=== PATIENT | female | born 1960 | race Caucasian/White ===

== ENCOUNTER 2019-03-18 07:10 | Emergency (ER) | payer MEDICARE ==
--- NOTE | 2019-03-18 07:19 | ER Report ---
History and Physical Time Seen By MD: 07:15 Hx. of Stated Complaint: BACK PAIN AFTER BENDING OVER IN RECLINER LAST NIGHT. STATES SHE IS NOW UNABLE TO AMBULATE. HX SCIATICA HPI/ROS CHIEF COMPLAINT: Lumbar back pain HISTORY OF PRESENT ILLNESS: Patient is 59-year-old female here with complaints of lower back pain since yesterday when she is bending over a recliner last night. Patient states that she is having increasing difficulty ambulating. She does report having history of sciatica. Patient is neurovascularly intact at time of evaluation with no bony step-offs or abnormalities. Patient is afebrile and denies bowel or bladder incontinence. REVIEW OF SYSTEMS: Constitutional: No fever, no chills. Eyes: No discharge. ENT: No sore throat. Cardiovascular: No chest pain, no palpitations. Respiratory: No cough, no shortness of breath. Gastrointestinal: No abdominal pain, no vomiting. Genitourinary: No hematuria. Musculoskeletal: + Lower lumbar back pain with range of motion and palpation Skin: No rashes. Neurological: Neurovascular exam intact in distal lower extremities Allergies: Coded Allergies: No Known Drug Allergies (Unverified , 03/18/19) Home Meds Active Scripts Prednisone (PREDNISONE) 50 Mg Tablet, 50 MG PO QDAY for 5 Days, #5 TAB Prov:MARIA DEL CARMEN GAONA DO 03/18/19 Tramadol Hcl (TRAMADOL HCL) 50 Mg Tablet, 50 MG PO Q6H PRN for PAIN, #12 TAB 0 Refills Prov:MARIA DEL CARMEN GAONA DO 03/18/19 Cyclobenzaprine Hcl (CYCLOBENZAPRINE HCL) 10 Mg Tablet, 10 MG PO Q8H PRN for MUSCLE SPASMS, #20 TAB 0 Refills Prov:MARIA DEL CARMEN GAONA DO 03/18/19 Reported Medications Diazepam (DIAZEPAM) 5 Mg Tablet, 5 MG PO PRN PRN for PAIN, #15 TAB 03/18/19 Levothyroxine Sodium (LEVOTHYROXINE SODIUM) 50 Mcg Tablet, 50 MCG PO QDAY, TAB 03/18/19 Bupropion Hcl (WELLBUTRIN SR) 100 Mg Tablet.er, 100 MG PO QDAY, TAB 03/18/19 Amitriptyline Hcl (AMITRIPTYLINE HCL) 25 Mg Tablet, 25 MG PO QHS, #5 TAB 03/18/19 Sertraline Hcl (ZOLOFT) 100 Mg Tablet, 1 TAB PO QDAY, TAB 03/18/19 Omeprazole (OMEPRAZOLE) 40 Mg Capsule.dr, 40 MG PO QDAY, CAP 03/18/19 Gabapentin (GABAPENTIN) 300 Mg Capsule, 800 MG PO BID, CAPSULE 03/18/19 Duloxetine HCl (Duloxetine HCl) 60 Mg Capsule.dr, 1 CAP PO DAILY 03/18/19 Constitutional Vital Sign - Last 24 Hours 03/18/19 03/18/19 07:11 11:10 Temp 98.5 Pulse 67 78 Resp 20 18 B/P (MAP) 136/101 133/95 (108) Pulse Ox 91 95 O2 Delivery Nasal Cannula Room Air Physical Exam General Appearance: The patient is alert, has no immediate need for airway protection and no signs of toxicity. Uncomfortable appearing Eyes: Pupils equal and round no pallor or injection. ENT, Mouth: Mucous membranes are moist. Respiratory: There are no retractions, lungs are clear to auscultation. Cardiovascular: Regular rate and rhythm. Gastrointestinal: Abdomen is soft and non tender, no masses, bowel sounds normal. Neurological: No focal neurological deficits on examination, lower extremity strength and sensation intact Skin: Warm and dry, no rashes. Musculoskeletal: Neck is supple non tender. Extremities are nontender, nonswollen and have full range of motion. DIFFERENTIAL DIAGNOSIS: After history and physical exam differential diagnosis was considered for back pain including but not limited to muscular pain, herniated disc, spine fracture, intra-abdominal causes and urinary tract infection. Medical Decision Making EKG/Imaging Imaging PATIENT NAME: Parul Sharma : 1960 MR: [id number] V: [id number] EXAM DATE: ORDERING PHYSICIAN: MARIA DEL CARMEN GAONA TECHNOLOGIST: [place] [facility] [place]ul Sh[place] : 1960 Visit/Account:[id number] Date of Sevice: 03/18/2019 CT VERTEBRA LUMBAR (NON CON) HISTORY: Low back pain COMPARISON STUDIES: None TECHNIQUE: Axial images were obtained from the thoraco-lumbar junction through the upper sacrum without IV contrast administration. Coronal and sagittal reformatted images were obtained from the axial source data. One of the following dose optimization techniques was utilized in the performance of this exam: automated exposure control; adjustment of the mA and/or kv according to patient size; or use of iterative reconstruction technique. Specific details can be referenced in the facility's radiology CT exam operational policy. FINDINGS: Paravertebral soft tissues: Negative Alignment: Negative Vertebral bodies: Negative Posterior elements: Mild facet proliferation from L3-S1. Disc Spaces: Negative Visualized retroperitoneal / abdominal structures: Negative Other findings: None significant IMPRESSION: 1. Negative for acute fracture or spondylolisthesis. 2. Mild facet proliferation from L3-S1. ED Course/Re-evaluation ED Course Patient is a 59-year-old female here with complaints of lower lumbar back pain without bony abnormalities step-offs, saddle anesthesia, bowel or bladder in continence, urinary retention. Patient had intact sensation and motor strength in distal lower extremities. CT imaging of the lumbar spine was completed and showed no acute fractures or malalignment. Patient was given Percocet, Flexeril for symptom management. Patient was given scripts for outpatient analgesia, muscle relaxer, prednisone. Recommended close follow-up with orthopedics. Return precautions provided. Decision to Disposition Date: Mar 18, 2019 Decision to Disposition Time: 10:56 Depart Departure Latest Vital Signs Vital Signs Date Time Temp Pulse Resp B/P (MAP) Pulse Ox O2 Delivery O2 Flow Rate FiO2 03/18/19 11:10 78 18 133/95 (108) 95 Room Air 03/18/19 07:11 98.5 Impression: Primary Impression: Lumbar back pain Condition: Improved Disposition: HOME OR SELF-CARE New Scripts Prednisone (PREDNISONE) 50 Mg Tablet 50 MG PO QDAY for 5 Days, #5 TAB Prov: MARIA DEL CARMEN GAONA DO 03/18/19 Tramadol Hcl (TRAMADOL HCL) 50 Mg Tablet 50 MG PO Q6H PRN for PAIN, #12 TAB 0 Refills Prov: MARIA DEL CARMEN GAONA DO 03/18/19 Cyclobenzaprine Hcl (CYCLOBENZAPRINE HCL) 10 Mg Tablet 10 MG PO Q8H PRN for MUSCLE SPASMS, #20 TAB 0 Refills Prov: MARIA DEL CARMEN GAONA DO 03/18/19 Patient Instructions: Acute Low Back Pain (ED) Additional Instructions: Please take prednisone 50 mg daily for the next 5 days. You may take Flexeril one tablet every 6-8 hours as needed for muscle spasm. You may take tramadol 1 tablet every 6-8 hours as needed for breakthrough pain control. Please follow up closely with [facility] for further evaluation and care. Please return promptly if you develop urinary retention, bowel or bladder incontinence, fevers, muscle weakness. MARIA DEL CARMEN GAONA DO Mar 18, 2019 07:19
[2019-03-18] MEDS ORDERED: oxyCODON/ACET (*)5/325MG (CII) 1 TAB TAB PO ONE (07:30)
[2019-03-18] MEDS ORDERED: CYCLOBENZAPRINE HCL 10 MG TAB PO ONE (07:30)
[2019-03-18] MEDS ORDERED: AMIT-106 PO (07:55)
[2019-03-18] MEDS ORDERED: GABA-549 PO (07:55)
[2019-03-18] MEDS ORDERED: DIAZ-308 PO (07:55)
[2019-03-18] MEDS ORDERED: DULO60CA7 PO (07:55)
[2019-03-18] MEDS ORDERED: SERT-173 PO (07:55)
[2019-03-18] MEDS ORDERED: LEVO50TA86 PO (07:55)
[2019-03-18] MEDS ORDERED: OMEP40CA48 PO (07:55)
[2019-03-18] MEDS ORDERED: BUPR-133 PO (07:55)
--- NOTE | 2019-03-18 08:47 | RADIOLOGY IMAGING REPORT ---
FACILITY: [facility] PATIENT NAME: Parul Sharma : 1960 MR: [id number] V: [id number] EXAM DATE: ORDERING PHYSICIAN: MARIA DEL CARMEN GAONA TECHNOLOGIST: Location: [facility] [place] Patient: Parul Sharma : 1960 Visit/Account:[id number] Date of Sevice: 03/18/2019 CT VERTEBRA LUMBAR (NON CON) HISTORY: Low back pain COMPARISON STUDIES: None TECHNIQUE: Axial images were obtained from the thoraco-lumbar junction through the upper sacrum with out IV contrast administration. Coronal and sagittal reformatted images were obtained from the axial source data. One of the following dose optimization techniques was utilized in the performance of thi s exam: automated exposure control; adjustment of the mA and/or kv according to patient size; or use of iterative reconstruction technique. Specific details can be referenced in the facility's radiology CT exam operational policy. FINDINGS: Paravertebral soft tissues: Negative Alignment: Negative Vertebral bodies: Negative Posterior elements: Mild facet proliferation from L3-S1. Disc Spaces: Negative Visualized retroperitoneal / abdominal structures: Negative Other findings: None significant IMPRESSION: 1. Negative for acute fracture or spondylolisthesis. 2. Mild facet proliferation from L3-S1. Report Dictated By: Daniel Ward MD at 03/18/2019 8:36 AM Report E-Signed By: Daniel Ward MD at 03/18/2019 8:40 AM WSN:[email or web address]
[2019-03-18 11:10] VITALS: BP 133/95
[2019-03-18] MEDS ORDERED: PRED50TA22 PO (11:11)
[2019-03-18] MEDS ORDERED: TRAM-420 PO (11:11)
[2019-03-18] MEDS ORDERED: CYCL10TA29 PO (11:11)
== END 2019-03-18 11:15 | disposition home or self-care (01) ==
LOC: ER 07:37
DX: M54.5 Low back pain (principal); Z79.899 Other long term (current) drug therapy
CPT/HCPCS: 72131; 99284; A9270

== ENCOUNTER → 2019-03-18 | Outpatient (CLI) | payer MEDICARE ==
[~2019-03-18] MED LIST: AMIT-106 PO; BUPR-133 PO; CYCL10TA29 PO; DIAZ-308 PO; DULO60CA7 PO; GABA-549 PO; LEVO50TA86 PO; OMEP40CA48 PO; PRED50TA22 PO; SERT-173 PO; TRAM-420 PO
== END ==
LOC: AMB 06:42
PROVIDERS: ATTEND Nurse Practitioner
DX: M54.40 Lumbago with sciatica, unspecified side (principal)
CPT/HCPCS: A0425; A0429